=== PATIENT | female | born 1985 | race African-American/Black ===

== ENCOUNTER 2024-06-01 19:47 | Emergency (ER) | payer OTHER, MEDICAID ==
[~2024-06-01] VITALS: Ht 160 cm; Wt 56.7 kg
[2024-06-01 20:00] VITALS: BP_SYST 131; PULSE 127; RESP 21; TEMP 99.1; O2SAT 99
[2024-06-01] MEDS ORDERED: DIPHENHYDRAMINE INJ 50 MG/ML VIAL ONE (22:33)
[2024-06-01] MEDS ORDERED: LORazepam 2 MG/ML VIAL ONE (22:33)
[2024-06-01] MEDS ORDERED: HALOPERIDOL LACTATE 5 MG/ML VIAL ONE (22:34)
[2024-06-01] MEDS: LORazepam 2 MG/ML VIAL IM ONE (22:47)
[2024-06-01] MEDS: DIPHENHYDRAMINE INJ 50 MG/ML VIAL IM ONE (22:48)
[2024-06-01] MEDS: HALOPERIDOL LACTATE 5 MG/ML VIAL IM ONE (22:48)
[2024-06-02 00:34] LABS: BASOPHILS # (AUTO) 0.1 K/uL (0.0-0.2); BASOPHILS % (AUTO) 0.7 % (0.0-2.0); EOSINOPHILS # (AUTO) 0.1 K/uL (0.0-0.4); EOSINOPHILS % (AUTO) 0.6 % (0.0-4.0); HEMATOCRIT 35.9 % (36-48); HEMOGLOBIN 12.3 g/dL (12.0-16.0); LYMPHOCYTES # (AUTO) 1.6 K/uL (1.0-5.5); LYMPHOCYTES % (AUTO) 18.1 % (20.5-51.5); MEAN CORPUSCULAR HEMOGLOBIN 31 pg (27-31); MEAN CORPUSCULAR HGB CONC 34 % (32-36); MEAN CORPUSCULAR VOLUME 90 fL (79.0-98.0); MONOCYTES # (AUTO) 0.7 K/uL (0.0-1.0); MONOCYTES % (AUTO) 7.9 % (1.7-9.3); NEUTROPHILS # (AUTO) 6.4 K/uL (1.8-7.7); NEUTROPHILS % (AUTO) 72.7 % (40.0-70.0); PLATELET COUNT (AUTO) 356 K/uL (130-430); RED BLOOD CELL COUNT(AUTO) 3.99 MIL/uL (4.2-6.2); RED CELL DISTRIBUTION WIDTH 13.7 % (9.0-15.0); WHITE BLOOD COUNT (AUTO) 8.7 K/uL (4.8-10.8)
[2024-06-02 01:05] LABS: ACETAMINOPHEN < 1 ug/mL (1-30); ALANINE AMINOTRANSFERASE 25 U/L (12-78); ALBUMIN 3.7 g/dL (3.4-4.8); ALCOHOL, BLOOD < 3 mg/dL (<10); ANION GAP 6 (5-15); ASPARTATE AMINOTRANSFERASE 29 U/L (10-37); BILIRUBIN,DIRECT 0.1 mg/dL (0.0-0.3); CALCIUM 8.4 mg/dL (8.4-11.0); CARBON DIOXIDE 29 mmol/L (23-29); CHLORIDE 105 mmol/L (98-107); CREATININE 1.35 mg/dL (0.55-1.30); GFR AFRICAN AMERICAN 56 mL/min (>90); GFR NON AFRICAN-AMERICAN 46 mL/min (>90); GLUCOSE 108 mg/dL (74-106); SALICYLATE 1 mg/dL (3-30); SODIUM SERUM 140 mmol/L (136-145); TOTAL BILIRUBIN 0.3 mg/dL (0.0-1.0); TOTAL PROTEIN, SERUM 6.7 g/dL (6.4-8.3); UREA NITROGEN, BLOOD 16 mg/dL (8-21)
[2024-06-02 03:37] LABS: BARBITURATE, URINE NEGATIVE (NEG <=200); BENZODIAZEPINE, URINE NEGATIVE (NEG <=150); CANNABINOID, URINE NEGATIVE (NEG <=50); COCAINE, URINE NEGATIVE (NEG <=150); METHAMPHETAMINES SCREEN,URINE NEGATIVE (NEG <=500); OPIATE, URINE NEGATIVE (NEG <=100); PHENCYCLIDINE SCREEN,URINE NEGATIVE (NEG <=25); UR TRICYCLIC ANTIDEPRESSANTS NEGATIVE (NEG <=300); URINE AMPHETAMINE NEGATIVE (NEG <=500); URINE METHADONE NEGATIVE (NEG <=200); URINE OXYCODONE SCREEN NEGATIVE (NEG <=100)
[2024-06-02 14:51] VITALS: BP_SYST 90; PULSE 84; RESP 16; TEMP 97.6; O2SAT 97
== END 2024-06-02 14:58 ==
LOC: SED 19:47 → EDBD 19:47 → SED 06-02 14:58
DX: F30.8 Other manic episodes (principal); R41.0 Disorientation, unspecified; R00.0 Tachycardia, unspecified; Z78.1 Physical restraint status; Z91.013 Allergy to seafood
CPT/HCPCS: 99285; 80307; 80076; 80048; 85025; 36415; 93005; 96372; G0482; J1200; J1630; J2060; G0480; G0481